=== PATIENT | female | born 1950 | race Caucasian/White ===

== ENCOUNTER → 2024-03-17 08:26 | Outpatient (REF) | payer MEDICARE, BC, SELFPAY ==
[2024-03-17 09:48] LABS: % Basophils 0.7 % (0-2); % Eosinophils 2.3 % (0-6); % Immature Granulocytes 0.2 % (0-0.5); % Lymphocytes 31.8 % (20.5-51.1); % Monocytes 8.1 % (1.7-9.3); % Neutrophils 56.9 % (42.2-75.2); Absolute Eosinophils 0.1 10^3/uL (0-0.7); Absolute Lymphocytes 1.4 10^3/uL (1.2-3.4); Absolute Monocytes 0.4 10^3/uL (0.1-0.6); Absolute Neutrophils 2.5 10^3/uL (1.4-6.5); Hematocrit 41.7 % (37.0-47.0); Hemoglobin 14.2 g/dL (12.0-16.0); Mean Corp Hgb Conc. 34.1 g/dL (33.0-37.0); Mean Corpuscular Hgb 29.6 pg (27.0-31.0); Mean Corpuscular Volume 86.9 fL (81.0-99.0); Mean Platelet Volume 10.3 fL (7.4-10.4); Nucleated Red Blood Cells % 0 %; Platelet Count 210 10^3/uL (130-400); Red Cell Dist. Width 13.3 % (11.5-14.5); White Blood Cell Count 4.4 10^3/uL (4.8-10.8)
[2024-03-17 10:05] LABS: ALT (SGPT) 22 U/L (0-35); AST (SGOT) 33 U/L (14-36); Albumin 4.4 g/dl (3.5-5.0); Alkaline Phosphatase 70 U/L (38-126); Blood Urea Nitrogen 21 mg/dl (7-17); Calcium 9.7 mg/dl (8.4-10.2); Carbon Dioxide 29 mmol/L (22-30); Chloride 102 mmol/L (98-107); Glucose 90 mg/dl (70-99); HDL Cholesterol 73 mg/dl; LDL Cholesterol, Calculated 150 mg/dl; Potassium 4.3 mmol/L (3.5-5.1); Sodium 138 mmol/L (135-145); Total Bilirubin 1.4 mg/dl (0.2-1.3); Total Cholesterol 240 mg/dl (50-199); Total Protein 6.9 g/dl (6.3-8.2); Triglyceride 89 mg/dl (10-149); Very Low Density Lipoprotein 17 mg/dl (0-30); eGFR > 60.00
[2024-03-17 10:34] LABS: TSH 2.43 uIU/ml (0.47-4.68)
[2024-03-17 11:57] LABS: Erythrocyte Sed Rate 14 mm/hour (0-20)
[2024-03-17 15:56] LABS: Urine Albumin Negative (Neg - Trace); Urine Bilirubin Negative (Negative); Urine Character Clear (Clear); Urine Color Yellow; Urine Glucose Negative (Negative); Urine Ketone Negative (Negative); Urine Leukocyte Negative (Negative); Urine Nitrite Negative (Negative); Urine Occult Blood Negative (Negative); Urine Specific Gravity 1.015 (<1.030); Urine Urobilinogen Negative (Neg - 1+); Urine pH 6.5 (5.0-9.0)
== END ==
LOC: HWLAB 08:26
PROVIDERS: ATTENDING PHYSICIAN Internal Medicine
DX: Z13.31 Encounter for screening for depression (principal); I10 Essential (primary) hypertension; G47.33 Obstructive sleep apnea (adult) (pediatric); Z86.79 Personal history of other diseases of the circulatory system; R42 Dizziness and giddiness; E78.5 Hyperlipidemia, unspecified; M15.0 Primary generalized (osteo)arthritis; G44.89 Other headache syndrome; Z00.00 Encounter for general adult medical examination without abnormal findings
CPT/HCPCS: 36415; 80053; 80061; 81003; 84443; 85025; 85652

== ENCOUNTER → 2024-08-05 10:14 | Outpatient (REF) | payer MEDICARE, BC, SELFPAY | LOC: RCS 10:14 | PROVIDERS: ATTENDING PHYSICIAN Internal Medicine | DX: R07.89 Other chest pain (principal); E78.5 Hyperlipidemia, unspecified; I10 Essential (primary) hypertension; Z86.79 Personal history of other diseases of the circulatory system | CPT/HCPCS: 93017; 93350 ==

== ENCOUNTER → 2024-10-07 10:45 | Outpatient (REF) | payer MEDICARE, BC, SELFPAY | LOC: HWRAD 10:45 | PROVIDERS: ATTENDING PHYSICIAN Internal Medicine | DX: S09.90XA Unspecified injury of head, initial encounter (principal); R51.9 Headache, unspecified | CPT/HCPCS: 70450 ==

== ENCOUNTER → 2024-10-13 18:13 | Outpatient (REF) | payer MEDICARE, BC, SELFPAY | LOC: MRI 18:13 | PROVIDERS: ATTENDING PHYSICIAN Internal Medicine | DX: D32.9 Benign neoplasm of meninges, unspecified (principal) | CPT/HCPCS: 70553; A9575 ==

== ENCOUNTER → 2024-12-01 10:06 | Outpatient (REF) | payer MEDICARE, BC, SELFPAY | LOC: HWRAD 10:06 | PROVIDERS: ATTENDING PHYSICIAN Internal Medicine | DX: R51.9 Headache, unspecified (principal) | CPT/HCPCS: 72050 ==

== ENCOUNTER → 2025-01-06 12:14 | Outpatient (REF) | payer MEDICARE, BC, SELFPAY | LOC: WDC 12:14 | PROVIDERS: ATTENDING PHYSICIAN Internal Medicine | DX: Z12.31 Encounter for screening mammogram for malignant neoplasm of breast (principal) | CPT/HCPCS: 77063; 77067 ==

== ENCOUNTER → 2025-03-15 12:05 | Outpatient (REF) | payer MEDICARE, BC, SELFPAY | LOC: MRI 3T 12:05 | PROVIDERS: ATTENDING PHYSICIAN Nurse Practitioner Family; FAMILY PHYSICIAN Internal Medicine | DX: D12.1 Benign neoplasm of appendix (principal); D32.9 Benign neoplasm of meninges, unspecified | CPT/HCPCS: 70553; A9575 ==

== ENCOUNTER → 2025-05-30 07:50 | Outpatient (REF) | payer MEDICARE, BC, SELFPAY | LOC: DHVS 07:50 | PROVIDERS: ATTENDING PHYSICIAN Internal Medicine | DX: R09.89 Other specified symptoms and signs involving the circulatory and respiratory systems (principal); I87.2 Venous insufficiency (chronic) (peripheral) | CPT/HCPCS: 93925 ==

== ENCOUNTER 2025-07-16 19:04 | Emergency (ER) | payer MEDICARE, BC, SELFPAY ==
[2025-07-16 19:06] VITALS: BP 143/77
--- NOTE | 2025-07-16 19:26 | ED.GENMED ---
History of Present Illness
General
Chief Complaint: Blood Pressure Problem
Source: patient
Exam Limitations: none
Time Seen by Provider: 07/16/25 19:25
Nursing documentation reviewed up to this point in time: agreed with
History of Present Illness
History of Present Illness:
Note:
CHIEF COMPLAINT(S)
Chest pain, headaches, dizziness, and high blood pressure.
HISTORY OF PRESENT ILLNESS
The patient is a 75-year-old female who presented with chest pain, headaches, and dizziness, which have been exacerbated by recent activity and possible dehydration. She states these symptoms began a couple of weeks ago with a viral upper
respiratory infection consisting of head and nasal congestion and sore throat. She had been started on an antibiotic approximately two and a half days prior by her primary care physician but reported significant dizziness as a side effect, which led
to cessation of the antibiotic. Despite stopping the medication, her dizziness and headaches persisted. She noted her symptoms worsened after a busy day without adequate food or fluid intake, contributing to a further increase in dizziness and a
sensation of nausea. Last night, the patient recorded a blood pressure reading of 149/70, which is higher than her norm, typically around 110 systolic. She also describes dizziness as more pronounced when she is in motion, for example, riding in a
car, and needs to hold on to stable surfaces to avoid feeling faint. The patient has a history of vertigo-like symptoms over the summer but was treated with physical therapy, which she states resolved those symptoms. Previous diagnostic tests,
including an MRI of the brain, revealed a meningioma, but her neurologist believes this is unrelated to her current symptoms. The dizziness is described as lightheadedness and not true vertigo, worsened by activity and possibly exacerbated by the
infection and dehydration. The chest pain is intermittent and associated with coughing. She denies significant coughing today but has had productive coughing episodes previously, attributing the chest pain possibly to coughing.
CURRENT MEDICATIONS
- Diclofenac (oral anti-inflammatory) daily
- Multivitamin
- Probiotic
- Stool softeners
- Metoprolol
PHYSICAL EXAM
General: Alert, no acute distress.
Skin: Warm, dry.
Head: Normocephalic, atraumatic.
Neck: Supple, trachea midline.
Eye Ears, nose, mouth and throat: Oral mucosa moist.
Cardiovascular: Normal peripheral perfusion, No edema.
Respiratory: Respirations are non-labored.
Gastrointestinal: Abdomen nondistended.
Back: Normal range of motion, Normal alignment.
Musculoskeletal: Normal range of motion, normal strength.
Neurological: Alert and oriented to person, place, time, and situation, patient managed to perform [id number] test without additional dizziness.
Psychiatric: Cooperative, appropriate mood & affect.
PLAN
1. Perform lab work to assess electrolytes and other potential abnormalities contributing to dizziness.
2. Conduct a chest X-ray to evaluate for pneumonia or other causes of chest discomfort.
3. Check cardiac enzymes, such as troponin, to rule out cardiac injury.
4. Review images from the past MRI which revealed the meningioma and consult with the neurologist if necessary.
5. Patient to continue with current medication regimen, including Metoprolol, as blood pressure management has improved.
6. Encourage adequate nutrition and hydration to avoid dehydration-related dizziness.
7. Follow up with neurologist as advised regarding the meningioma.
DIFFERENTIAL DIAGNOSIS
The Differential Diagnosis includes, in no particular order and is not limited to:
1. Meningioma
2. Viral upper respiratory infection
3. Sinusitis
4. Dehydration
5. Hypertension
6. Anxiety disorder
7. Medication side effects (antibiotics)
8. Gastroesophageal reflux disease (GERD) leading to atypical chest pain
9. Cardiovascular disease (angina or myocardial infarction)
10. Pulmonary issues such as pneumonia or bronchitis
CHART REVIEW
Reviewed your chart from 09/17/15 , new discharge summary in [facility] to review
MDM/DISPO
75-year-old female presents to the ER today with concerns of your eye symptoms, intermittent dizziness, and intermittent headaches. She has been closely followed by neurology for dizziness and headaches. She was diagnosed with vertigo and receive
physical therapy. She received MRI imaging of the brain which I reviewed in [facility] which showed him an Ngema. This is stable compared with today's CT. She reports that usually her blood pressure is in the 120s and it usually almost never goes to
the 140s. On physical exam sheets while appearing and then they will keep distress. She's no focal neurological deficits. She's normal finger to nose, healing testing. b work unremarkable. Patient reports that after IV fluid she feels much improved.
I suspect patient experience of dizzy likely multifactorial likely related related o urrent sinus infection as well as dehydration. Patient felt like the anabiotic was making her symptoms worse . I advised patient to follow Up with her PCP
regarding her ongoing URI symptoms. She has no spectral scientist of sepsis , no sense of pneumonia on chest x-ray. And I have her chest pain, patient is chest pain free upon discharge. I suspect this was related to the coughing fits she was having at home
as a pain seem to be triggered by these episodes. She had to undetectable troponins with two non- ischemic ECG. Patient stable for discharge. . Case briefly reviewed with ED attending.
DISPO PLAN
The patient should continue her medication regimen, including Metoprolol, and stay hydrated and well-nourished. She should follow up with her primary care provider for her blood pressure management and her neurologist regarding her dizziness.
- Complexity of Data Reviewed: Chronic conditions affecting care include hypertension and a meningioma. Differential diagnosis includes meningioma, viral upper respiratory infection, sinusitis, dehydration, hypertension, medication side effects,
gastroesophageal reflux disease (GERD), cardiovascular disease, and pulmonary issues such as pneumonia or bronchitis.
- Data:
Category 1
- My independent review of negative troponins and chest X-ray with no pneumonia.
- My independent review of ECG showing no ischemic changes.
Category 3
- Discussion of management with primary care provider and neurologist advised for follow-up in outpatient settings.
UPDATE
8:50 pm--elevated BUN:creatinine ratio will give IV fluid bolus
Past History
Past History
ED Past Medical History: None
ED Past Surgical History: None
Social History
Tobacco: Non-smoker
Alcohol: None
Drug: None
Personal:
Living: with family
Review of Systems
Review of Systems
All Other Systems: ROS reviewed and negative except as documented in HPI and ROS
Phy Exam
Physical Exam
Physical Exam:
see hpi
Course
Orders/Labs/Results
Orders:
Orders
07/16/25 19:10
EKG [Electrocardiogram (*1)] Urgent
Reason for Study: Vertigo / Dizzy
EKG- Treatment ONCE
07/16/25 19:47
CR Chest - 2 Views Urgent
Comment:
Reason For Exam: chest pain, cough
07/16/25 19:58
CT Head W/o Iv Contrast Urgent
Comment:
Reason For Exam: worsening headaches, dizziness
07/16/25 20:00
Complete Blood Count/With Diff Urgent
Comprehensive Metabolic Panel Urgent
Troponin I Urgent
07/16/25 20:51
0.9% Sodium Chloride 500 ml [Nss] 500 ml IV BOLUS
07/16/25 22:53
Troponin I Urgent
07/16/25 23:00
Electrocardiogram (*1) Urgent
Reason for Study: Chest Pain
Abnormal Lab Results
07/16/25
20:00
Sodium 133 L mmol/L
(135-145)
BUN 29 H mg/dl
(7-17)
07/16/25 20:00
07/16/25 20:00
Vital Signs
Initial and Last Documented VS:
Initial Vital Signs
Temp Pulse Resp BP Pulse Ox
97.7 F 70 20 143/77 98
07/16/25 19:06 07/16/25 19:06 07/16/25 19:06 07/16/25 19:06 07/16/25 19:06
Last Documented Vital Signs
Temp Pulse Resp BP Pulse Ox
97.7 F 63 18 140/74 99
07/16/25 19:06 07/16/25 23:30 07/16/25 23:42 07/16/25 23:42 07/16/25 23:42
*Pulse Oximetry
SaO2: 98
Oxygen Mode of Delivery: Room air
Patient hypoxic: no
*Critical Care Note
Total Time (30-74mins, 75-104mins- exclusive of procedures): Not Applicable
ED Attending Note
-
Portions of this chart may have been created with voice recognition software.� Occasional wrong word or��sound alike� substitutions may have occurred due to the inherent limitations of voice recognition software.
Discharge Plan
Departure
Patient Disposition: Home (Routine Discharge)
Date of Disposition: 07/16/25
Time of Disposition: 23:32
Patient with high blood pressure during this ER visit?: Yes
Condition: Good
Discharge Problem:
High blood pressure, Dizziness
Instructions: Cough, runny nose, and colds, BLOOD PRESSURE
Prescriptions:
No Action
prednisone 10 MG tablet
10 mg PO .TAPER Qty: 30 0RF
Rx Instructions:
Take [id number], [id number], [id number].
prednisone 10 MG tablet
10 mg PO PER PROTOCOL Qty: 27 0RF
Rx Instructions:
Take 4 tablets daily for 3 days, then 3 tablets daily for 3 days, then 2 tablets daily for 3 days.
acetaminophen-codeine 1 TABLET tablet
1 tab PO Q4HPRN PRN (Reason: severe pain) Qty: 15 0RF
cyclobenzaprine 10 MG tablet
10 mg PO TID Qty: 9 0RF
Referrals:
Juan Reeder MD [Family Provider, Internal Medicine]
Activity Restrictions/Additional Instructions:
Please keep a log of your blood pressures and call your primary care provider to schedule a follow-up appointment in 1 week.
PLEASE RETURN TO ER SHOULD YOU DEVELOP CHEST PAIN, SHORTNESS OF BREATH, LOSS OF VISION, FAINTING SPELLS, WEAKNESS ON ONE SIDE BODY VERSUS OTHER, LOSS OF SENSATION, OR ANY OTHER SIGNS OR SYMPTOMS WORRISOME TO YOU
Interventions
Interventions:
*Risk Screen - Suicide Last Done: 07/16/25 19:06
*General Assessment Last Done: 07/16/25 20:13
*Neglect/Abuse Screening Last Done: 07/16/25 19:06
*ED- Fall Risk Assessment Last Done: 07/16/25 20:13
*ED COVID-19 Vaccine History Last Done: 07/16/25 23:13
*ED Influenza Vaccine History Last Done: 07/16/25 23:13
*Nursing Disposition Last Done: 07/16/25 23:42
ED- Cardiac Assessment Last Done: 07/16/25 20:12
ED- Neurological Assessment Last Done: 07/16/25 20:12
ED- Pulmonary Assessment Last Done: 07/16/25 20:12
Discharge Date and Time
Discharge Date/Time: 07/16/25 23:50
Print Language: ARMENIAN
[2025-07-16 19:28] VITALS: BP 121/66
[2025-07-16 20:00] VITALS: BP 132/89
[2025-07-16 20:07] LABS: Hematocrit 37.0 % (37.0-47.0); Hemoglobin 12.6 g/dL (12.0-16.0); Mean Corp Hgb Conc. 34.1 g/dL (33.0-37.0); Mean Corpuscular Volume 86.9 fL (81.0-99.0); Nucleated Red Blood Cells % 0 %; Platelet Count 193 10^3/uL (130-400); Red Cell Dist. Width 13.1 % (11.5-14.5)
[2025-07-16 20:27] LABS: ALT (SGPT) 21 U/L (0-35); AST (SGOT) 33 U/L (14-36); Albumin 4.0 g/dl (3.5-5.0); Alkaline Phosphatase 61 U/L (38-126); Blood Urea Nitrogen 29 mg/dl (7-17); Calcium 9.1 mg/dl (8.4-10.2); Carbon Dioxide 27 mmol/L (22-30); Chloride 101 mmol/L (98-107); Glucose 95 mg/dl (70-99); Potassium 4.0 mmol/L (3.5-5.1); Sodium 133 mmol/L (135-145); Total Protein 6.6 g/dl (6.3-8.2); eGFR > 60.00
[2025-07-16 20:30] LABS: Troponin I < 0.012 ng/ml
[2025-07-16] MEDS: NSS 500 IV (21:02)
[2025-07-16 21:56] VITALS: BP 137/95
[2025-07-16 22:00] VITALS: BP 146/77
[2025-07-16 23:24] LABS: Troponin I < 0.012 ng/ml
[2025-07-16 23:42] VITALS: BP 140/74
== END 2025-07-16 23:50 | disposition home or self-care (01) ==
LOC: EMR 19:04
PROVIDERS: Physician Assistant; EMERGENCY PHYSICIAN Emergency Medicine; FAMILY PHYSICIAN Internal Medicine
DX: R42 Dizziness and giddiness (principal); I10 Essential (primary) hypertension; R51.9 Headache, unspecified; R07.9 Chest pain, unspecified; D32.9 Benign neoplasm of meninges, unspecified
CPT/HCPCS: 99285; 96360; 70450; 71046; 80053; 84484; 85025; 93005

== ENCOUNTER 2025-08-11 20:17 | Emergency (ER) | payer MEDICARE, BC, SELFPAY ==
[2025-08-11 20:24] VITALS: BP 140/81
--- NOTE | 2025-08-11 22:45 | ED.GENMED ---
History of Present Illness
General
Chief Complaint: Fall
Source: patient
Exam Limitations: none
Time Seen by Provider: 08/11/25 22:21
Nursing documentation reviewed up to this point in time: agreed with
History of Present Illness
History of Present Illness:
Patient is a 75-year-old female with history of hypertension who presents to the emergency department after fall. Patient states she tripped walking up her basement steps today falling landing on her left side. She did strike the left side her
head on the concrete. She denies any loss of conscious however does describe immediate dizziness following fall. Fortunately, she was able to get up on her own after few minutes and ambulate upstairs.
Patient states she felt mildly nauseous and dizzy briefly following fall however this is since resolved. She denies any significant headache or neck pain. No visual changes, vomiting. No back pain.
Her main concern is pain in her left wrist although does feel that she has decent range of motion. She also has mild pain in her left shoulder and left hip although has been able to ambulate and weight-bear independently.
Patient is not on any oral anticoagulation.
Past History
Past History
ED Past Medical History: None
ED Past Surgical History: None
Social History
Tobacco: Non-smoker
Alcohol: None
Drug: None
Personal:
Living: with family
Review of Systems
Review of Systems
Allergies reviewed?: Yes
All Other Systems: ROS reviewed and negative except as documented in HPI and ROS
Phy Exam
Physical Exam
Physical Exam:
GENERAL: No acute distress
HEENT: atraumatic, extraocular muscles intact, no signs of entrapment, dentition intact
NECK: no midline tenderness, normal range of motion, no other obvious trauma
BACK: no midline tenderness, no other obvious trauma
CHEST: no tenderness, no flail segment, no subcutaneous emphysema, no other obvious trauma
LUNGS: clear to auscultation bilaterally
CARDIOVASCULAR: regular rate and rhythm
ABDOMEN: soft, non-tender, no masses, no other obvious trauma
PELVIS: stable\\
EXTREMITIES: moving all extremities, she does have small ecchymoses in area of left proximal humerus with reproducible tenderness as well as localized area of swelling and pain of left distal radius, mild tenderness of left hip near greater
trochanter/inguinal region without obvious deformity, distal pulses intact bilaterally with good range of motion; right upper and right lower extremity atraumatic and nontender with full range of motion.
NEUROLOGIC: awake, alert x 3, no focal deficits
Course
Orders/Labs/Results
Orders:
Orders
08/11/25 22:44
CT Head W/o Iv Contrast Urgent
Comment:
Reason For Exam: fall w/ head strike
Cervical Spine wo Contrast CT [CT Cervical Spine W/o Iv Contr] Urgent
Comment:
Reason For Exam: fall
Acetaminophen [Tylenol] 1,000 mg PO NOW STA
CR Shoulder, Trauma - Left Urgent
Reason For Exam: fall
Hip, Left 2-3 Views [CR Hip - LT w/wo Pel 2-3 Vw*] Urgent
Comment:
Reason For Exam: fall
Include a pelvis x-ray?: Yes
Wrist, Left 3 Views CR [CR Wrist - Left Min 3 Views] Urgent
Comment:
Reason For Exam: fall
08/12/25 00:01
Splints/Slings/Crut- Treatment ONCE
Location: Left
Type of Splint: Volar
Vital Signs
Initial and Last Documented VS:
Initial Vital Signs
Temp Pulse Resp BP Pulse Ox
97.6 F 73 18 140/81 98
08/11/25 20:24 08/11/25 20:24 08/11/25 20:24 08/11/25 20:24 08/11/25 20:24
Last Documented Vital Signs
Temp Pulse Resp BP Pulse Ox
97.6 F 84 20 140/81 98
08/11/25 20:24 08/12/25 01:46 08/12/25 01:46 08/11/25 20:24 08/12/25 01:46
Procedures
Splinting/Sling Placement
Left Arm:
Procedure completed by: day light relief operator
Pre-splint extermity exam: neurovascular intact
Type of splint: volar
Splint material: fiberglass
Splint checked by provider?: Yes
Normal distal neurovascular exam?: Yes
MDM/Problems Addressed
Differential Diagnosis Includes:
Not limited to: Concussion, contusion, brain bleed, proximal humerus fracture, hip/pelvic fracture, wrist fracture, etc
MDM/Problems Addressed:
75 year old female presenting after mechanical fall at home with head strike. No oral anticoagulation. Patient complains of pain in left hip, wrist, and shoulder following fall. She is ambulating without difficulty.
Vitals and physical exam as above. Patient A&O x 3 without focal neurologic deficits. Area of localized swelling and tenderness of left wrist with additional mild tenderness in left shoulder and hip.
CT imaging of head/cervical spine without acute traumatic injuries. Xray of left wrist reveals nondisplaced left distal radius fracture. Otherwise - xray of left shoulder and hip/pelvis without evidence of acute injury.
Patient was placed in a volar splint and tolerated procedure well. She is ambulating with steady gait. Feel stable for discharge home with outpatient orhtopedics follow-up. Advised ice, tylenol for pain. Strict return precautions discussed.
Chronic conditions affecting care:
HTN
Acute Exacerbation and/or Progression of Chronic Illness:
Acutely hypertensive
*Radiology
Radiology exam reviewed: preliminary read by ED provider (X-ray images reviewed by me-nondisplaced left distal radius fracture) and radiology read reviewed
*Pulse Oximetry
SaO2: 98
Oxygen Mode of Delivery: Room air
Patient hypoxic: no
*EKG
Interpreted by ED Provider?: NA
*Automatic Engraver Interpretation
Rate: Automatic Engraver- N/A
*Critical Care Note
Total Time (30-74mins, 75-104mins- exclusive of procedures): Not Applicable
ED Attending Note
-
Portions of this chart may have been created with voice recognition software.� Occasional wrong word or��sound alike� substitutions may have occurred due to the inherent limitations of voice recognition software.
Discharge Plan
Departure
Patient Disposition: Home (Routine Discharge)
Date of Disposition: 08/12/25
Time of Disposition:
Patient with high blood pressure during this ER visit?: Yes
Discharge Problem:
Fall, Distal radius fracture, left, Head injury
Instructions: Head Injury in Adults (DC), BLOOD PRESSURE, Wrist Fracture
Prescriptions:
No Action
prednisone 10 MG tablet
10 mg PO .TAPER Qty: 30 0RF
Rx Instructions:
Take [id number], [id number], [id number].
prednisone 10 MG tablet
10 mg PO PER PROTOCOL Qty: 27 0RF
Rx Instructions:
Take 4 tablets daily for 3 days, then 3 tablets daily for 3 days, then 2 tablets daily for 3 days.
acetaminophen-codeine 1 TABLET tablet
1 tab PO Q4HPRN PRN (Reason: severe pain) Qty: 15 0RF
cyclobenzaprine 10 MG tablet
10 mg PO TID Qty: 9 0RF
Referrals:
Sotero Ferreira MD [Active, Orthopedics] - Next open appointment
Juan Reeder MD [Family Provider, Internal Medicine]
Activity Restrictions/Additional Instructions:
RETURN TO THE EMERGENCY DEPARTMENT WITH ANY SEVERE HEADACHE OR NECK PAIN, DIZZINESS, CHANGES IN MENTAL STATUS, NUMBNESS/TINGLING OR INTRACTABLE PAIN OF LEFT WRIST/HAND OR ANY OTHER CONCERNS
- As discussed�your x-ray of the left wrist showed a distal radius fracture. You were placed in a splint. You should keep this on until seen by orthopedics. Continue to apply ice and take Tylenol as needed for pain.
- Follow-up with orthopedics for further evaluation and/or management
Monitor your symptoms closely and return to the emergency department with any acute worsening/new symptoms or any other concern
Interventions
Interventions:
*Risk Screen - Suicide Last Done: 08/11/25 20:29
*General Assessment Last Done: 08/11/25 20:29
*Neglect/Abuse Screening Last Done: 08/11/25 20:29
*ED COVID-19 Vaccine History Last Done: 08/11/25 20:29
*ED Influenza Vaccine History Last Done: 08/11/25 20:29
[facility] Fall Risk Assessment Tool Last Done: 08/12/25 00:41
*Nursing Disposition Last Done: 08/12/25 01:46
ED-Musculoskeletal Assessment Last Done: 08/11/25 21:09
ED- Neurological Assessment Last Done: 08/11/25 21:09
ED-Skin Assessment Last Done: 08/11/25 21:09
Discharge Date and Time
Discharge Date/Time: 08/12/25 01:49
Print Language: CANADIAN
[2025-08-11] MEDS: TYLENOL 1000 MG PO (23:17)
== END 2025-08-12 01:49 | disposition home or self-care (01) ==
LOC: EMR 20:17
PROVIDERS: EMERGENCY PHYSICIAN Student in an Organized Health Care Education/Training Program; FAMILY PHYSICIAN Internal Medicine
DX: S52.592A Other fractures of lower end of left radius, initial encounter for closed fracture (principal); S09.90XA Unspecified injury of head, initial encounter; S40.022A Contusion of left upper arm, initial encounter; W10.8XXA Fall (on) (from) other stairs and steps, initial encounter; Y93.01 Activity, walking, marching and hiking; Y92.008 Other place in unspecified non-institutional (private) residence as the place of occurrence of the external cause; I10 Essential (primary) hypertension
CPT/HCPCS: 29125; 99284; 70450; 72125; 73030; 73110; 73502